=== PATIENT | female | born 1970 | race Caucasian/White ===

== ENCOUNTER → 2016-09-25 | Outpatient (CLI) | payer BC ==
[~2016-09-25] MED LIST: ASP81CT PO; BUPR150T6 PO; CYCL2DRO5 OD; ERT1OO OP; HYDR1CAP2 PO
--- NOTE | 2016-09-25 18:01 | Diagnostic Imaging Report ---
Left breast diagnostic mammogram. INDICATION: Left axilla pain. COMPARISON: 01/31/16 The current study was also evaluated with a Computer Aided Detection (CAD) system. FINDINGS: The left breast demonstrates heterogeneously dense parenchyma which would decrease mammographic sensitivity. There are scattered benign-appearing calcifications. The area of pain is marked and demonstrates no underlying abnormality. IMPRESSION: Negative study. Ultrasound evaluation of the area of pain is pending. ACR BI-RADS Category 0: Incomplete. (Needs additional imaging evaluation). Result letter will be mailed to the patient. Note: At least 10% of breast cancer is not imaged by mammography. Dictated by: Dictated on workstation # [id number]
--- NOTE | 2016-09-25 18:08 | Diagnostic Imaging Report ---
Left breast ultrasound. INDICATION: Left breast pain. FINDINGS: The area of pain is examined with no underlying abnormality seen. IMPRESSION: Negative study. Clinical follow-up is recommended. ACR BI-RADS Category 1: Negative. Dictated by: Dictated on workstation # [id number]
== END ==
LOC: RAD 08:15
PROVIDERS: ATTEND Family Medicine
DX: N64.4 Mastodynia (principal)
CPT/HCPCS: 76642

== ENCOUNTER → 2017-04-16 | Outpatient (CLI) | payer BC ==
--- NOTE | 2017-04-17 18:31 | Diagnostic Imaging Report ---
Bilateral screening mammogram 2D views with tomosynthesis The current study was also evaluated with a Computer Aided Detection (CAD) system. INDICATION: Screening. No current complaints stated on the questionnaire. COMPARISON: 09/25/2016. FINDINGS: The breasts are composed of heterogeneously dense parenchyma which may decrease mammographic sensitivity. No mass, architectural distortion, or suspicious cluster of calcifications seen. Allowing for technique and positional differences, no suspicious change is seen. IMPRESSION: No significant change. ACR BI-RADS Category 2: Benign findings. Result letter will be mailed to the patient. Note: At least 10% of breast cancer is not imaged by mammography. Dictated on workstation # [id number]
== END ==
LOC: RAD 13:12
PROVIDERS: ATTEND Nurse Practitioner
DX: Z12.31 Encounter for screening mammogram for malignant neoplasm of breast (principal)
CPT/HCPCS: 77067

== ENCOUNTER → 2018-12-04 | Outpatient (CLI) | payer BC ==
--- NOTE | 2018-12-04 12:35 | Diagnostic Imaging Report ---
PROCEDURE: US Thyroid. TECHNIQUE: Multiple real-time grayscale images were obtained of the thyroid in various projections. INDICATION: Thyroid nodules, followup. COMPARISON: Correlation is made with prior thyroid ultrasound from 11/09/2014. FINDINGS: Right lobe of thyroid measures 5.2 x 2.1 x 1.7 cm and left lobe measures 4.4 x 2.2 x 1.7 cm. Bilateral subcentimeter thyroid nodules are again noted. There are nodules in the right lobe in mid to lower aspect. The more superior nodule is approximately 5 mm in size compared with 7 mm on prior. More inferior nodule is approximately 8 mm x 7 mm compared with 9 mm x 9 mm on prior. Cystic nodule in upper pole of left lobe is approximately 7 mm compared with 8 mm on prior. Inferior nodule is approximately 7 x 9 mm compared with 6 mm x 6 mm on prior. IMPRESSION: Overall stable subcentimeter thyroid nodules when compared with study from four years earlier. No dominant thyroid mass is detected. Dictated by: Dictated on workstation # [id number]
--- NOTE | 2018-12-04 13:41 | Diagnostic Imaging Report ---
INDICATION: Routine screening. COMPARISON is made with prior mammogram 04/16/2017 and 01/31/2016. 2-D and 3-D bilateral screening mammography was performed with CAD. FINDINGS: Scattered fibroglandular densities are identified bilaterally. The parenchymal pattern is stable. No mass or malignant appearing microcalcifications are seen. Axillae are unremarkable. IMPRESSION: BI-RADS category 1. No mammographic features suspicious for malignancy are identified. ACR BI-RADS Category 1: Negative. Result letter will be mailed to the patient. Note: At least 10% of breast cancer is not imaged by mammography. Dictated by: Dictated on workstation # [id number]
== END ==
LOC: RAD 10:30
PROVIDERS: ATTEND Nurse Practitioner
DX: Z12.31 Encounter for screening mammogram for malignant neoplasm of breast (principal); Z01.419 Encounter for gynecological examination (general) (routine) without abnormal findings; E04.2 Nontoxic multinodular goiter
CPT/HCPCS: 76536; 77067

== ENCOUNTER → 2019-04-13 | Outpatient (CLI) | payer BC ==
[~2019-04-13] MED LIST changes: +ASPI-983 PO; +DOXY100C42 PO; +FAMO20TA3 PO; +MULT1TAB69 PO; +PROP10TA8 PO
== END ==
LOC: CARD 14:39
PROVIDERS: ATTEND Family Medicine
DX: I49.9 Cardiac arrhythmia, unspecified (principal)
CPT/HCPCS: 93005

== ENCOUNTER → 2019-04-13 | Outpatient (CLI) | payer BC ==
[~2019-04-13] MED LIST changes: +CATHETER FLUSH 10 ML SYR IV PRN; +HOLD METFORMIN - RECEIVED CONTRAST 20 ML VIAL IV SCH; +IOHEXOL 350 MG/ML 100 ML (OMNIPAQUE 350) VIAL IV ONE; +NS 100 ML (IVPB) BAG IV ONE
--- NOTE | 2019-04-13 17:55 | Diagnostic Imaging Report ---
PROCEDURE: CT angiography of the chest with contrast. TECHNIQUE: Multiple contiguous axial images were obtained through the chest after uneventful bolus administration of intravenous contrast. 3D reconstructed CTA MIP acquisitions were also performed. Auto Exposure Controls were utilized during the CT exam to meet ALARA standards for radiation dose reduction. DATE: April 13, 2019. COMPARISON: None. INDICATION: 48-year-old female, dyspnea. Elevated D-dimer. FINDINGS: There is no identified pulmonary nodule. There is no lung mass. There is no focal airspace consolidation. There is no pneumothorax. There is no pleural effusion. The central airways are patent. There is no identified central or proximal segmental pulmonary embolus. There is limited evaluation for distal pulmonary emboli given the timing of the contrast bolus. The main pulmonary artery is normal in caliber. The heart is not enlarged. There is no pericardial effusion. There is no identified abnormally enlarged mediastinal, hilar, or axillary lymph node which meets CT size criteria for adenopathy. There is fatty replacement of the pancreatic parenchyma. Additional evaluation of the imaged portions of the upper abdomen is unremarkable. There are degenerative changes of the spine. There is no identified acute bony abnormality. IMPRESSION: CT CHEST. 1. No identified proximal pulmonary embolus or other acute cardiopulmonary abnormality. Dictated by: Dictated on workstation # [id number]
== END ==
LOC: RAD 16:23
PROVIDERS: ATTEND Nurse Practitioner Family
DX: R06.00 Dyspnea, unspecified (principal); R79.89 Other specified abnormal findings of blood chemistry
CPT/HCPCS: 71275

== ENCOUNTER → 2019-12-08 | Outpatient (CLI) | payer BC ==
[~2019-12-08] MED LIST changes: -CATHETER FLUSH 10 ML SYR IV PRN; -HOLD METFORMIN - RECEIVED CONTRAST 20 ML VIAL IV SCH; -IOHEXOL 350 MG/ML 100 ML (OMNIPAQUE 350) VIAL IV ONE; +MULT-567 PO; -MULT1TAB69 PO; -NS 100 ML (IVPB) BAG IV ONE
== END ==
LOC: LABNPT 06:54
PROVIDERS: ATTEND Family Medicine
DX: M79.10 Myalgia, unspecified site (principal); R53.83 Other fatigue; R68.83 Chills (without fever); Z20.828 Contact with and (suspected) exposure to other viral communicable diseases
CPT/HCPCS: 87635

== ENCOUNTER → 2020-02-22 | Outpatient (CLI) | payer BC ==
[~2020-02-22] MED LIST changes: +ASPI-1238 PO; -ASPI-983 PO
== END ==
LOC: CARD 15:40
PROVIDERS: ATTEND Nurse Practitioner Family
DX: R00.2 Palpitations (principal); R53.83 Other fatigue; Z20.828 Contact with and (suspected) exposure to other viral communicable diseases
CPT/HCPCS: 93005

== ENCOUNTER → 2020-02-29 | Outpatient (CLI) | payer BC, OTHER | LOC: CARD 08:30 | PROVIDERS: ATTEND Internal Medicine Cardiovascular Disease | DX: D68.2 Hereditary deficiency of other clotting factors (principal); E78.5 Hyperlipidemia, unspecified; R07.89 Other chest pain; R06.02 Shortness of breath; R00.2 Palpitations; Z20.828 Contact with and (suspected) exposure to other viral communicable diseases | CPT/HCPCS: 93225; 93226 ==

== ENCOUNTER → 2020-03-11 | Outpatient (CLI) | payer BC, OTHER ==
--- NOTE | 2020-03-11 14:28 | Diagnostic Imaging Report ---
PROCEDURE: US Non-ob pelvis comp/trans. TECHNIQUE: Multiple realtime grayscale images were obtained of the pelvis in various projections endovaginally. Transabdominal imaging was also performed. INDICATION: Pelvic pain and abnormal uterine bleeding. The uterus is anteverted measuring 8.5 x 4.1 x 4.8 cm. Endometrium is 5 mm in thickness. No myometrial mass is detected. Right ovary measures 2.3 x 1.9 x 2.4 cm. There is a cyst in the right ovary measuring 2.2 x 1.9 x 2.2 cm. There appears to be vascularity present. The left ovary is not visualized. No free fluid is seen. IMPRESSION: 2.2 cm right ovarian cyst. The study is otherwise unremarkable. Dictated by: Dictated on workstation # [id number]
== END ==
LOC: RAD 12:41
PROVIDERS: ATTEND Family Medicine
DX: N83.201 Unspecified ovarian cyst, right side (principal)
CPT/HCPCS: 76830; 76856

== ENCOUNTER → 2020-03-15 | Outpatient (CLI) | payer BC, OTHER | LOC: CARD 09:00 | PROVIDERS: ATTEND Internal Medicine Cardiovascular Disease | DX: D68.2 Hereditary deficiency of other clotting factors (principal); R07.89 Other chest pain; R06.02 Shortness of breath; R00.2 Palpitations; E78.5 Hyperlipidemia, unspecified | CPT/HCPCS: 93306; 93351 ==

== ENCOUNTER → 2020-04-07 | Outpatient (CLI) | payer BC, OTHER ==
[~2020-04-07] MED LIST changes: +CATHETER FLUSH 10 ML SYR IV PRN; +HOLD METFORMIN - RECEIVED CONTRAST 20 ML VIAL IV SCH; +IOHEXOL 350 MG/ML 100 ML (OMNIPAQUE 350) VIAL IV ONE; +NS 100 ML (IVPB) BAG IV ONE
--- NOTE | 2020-04-07 14:09 | Diagnostic Imaging Report ---
PROCEDURE: CT angiography of the chest with contrast. TECHNIQUE: Multiple contiguous axial images were obtained through the chest after uneventful bolus administration of intravenous contrast. 3D reconstructed CTA MIP acquisitions were also performed. Auto Exposure Controls were utilized during the CT exam to meet ALARA standards for radiation dose reduction. INDICATION: Continued chest pain and shortness of air. COMPARISON: Comparison is made with prior CT angiogram of the chest performed on 04/13/2019. FINDINGS: Evaluation of the pulmonary arterial system is without evidence of thromboembolism. No filling defects are seen within central, lobar, or segmental branches. The thoracic aorta is normal in caliber. No dissection is seen. There is no pericardial or pleural fluid. No axillary lymphadenopathy is seen. No definite hilar or mediastinal lymphadenopathy is detected. There are some patchy groundglass peripheral infiltrates in the left upper lobe as well as the right upper lobe. Minimal patchy bibasilar pulmonary infiltrates are noted. The upper abdomen is unremarkable. IMPRESSION: 1. No evidence of pulmonary embolism or thoracic aortic dissection. 2. Patchy bilateral upper and lower lobe pulmonary infiltrates, consistent with pneumonia. Dictated by: Dictated on workstation # [id number]
== END ==
LOC: RAD 13:45
PROVIDERS: ATTEND Family Medicine
DX: U07.1 COVID-19 (principal)
CPT/HCPCS: 71275

== ENCOUNTER 2020-04-17 17:48 | Emergency (ER) | payer BC, OTHER ==
[~2020-04-17] VITALS: Ht 172 cm; Wt 108.0 kg
[~2020-04-17 17:48] MED LIST changes: -CATHETER FLUSH 10 ML SYR IV PRN; -HOLD METFORMIN - RECEIVED CONTRAST 20 ML VIAL IV SCH; -IOHEXOL 350 MG/ML 100 ML (OMNIPAQUE 350) VIAL IV ONE; -NS 100 ML (IVPB) BAG IV ONE
[2020-04-17] MEDS ORDERED: LACTATED RINGERS 1,000 ML IV ONE (18:00)
[2020-04-17] MEDS ORDERED: PANTOPRAZOLE 40 MG (PROTONIX) VIAL IV ONE (18:15)
--- NOTE | 2020-04-17 18:16 | ED Abdominal Pain ---
General Chief Complaint: Abdominal/GI Problems Stated Complaint: ABD SWELLING/LOWER BACK PAIN Nursing Triage Note: ARRIVED VIA AMB TO ROOM 05 WITH COMPLAINTS OF ABD PAIN AND DISTENTION STARTING ON SATURDAY. Sepsis Screen: No Definite Risk Source of Information: Patient History of Present Illness Date Seen by Provider: Apr 17, 2020 Time Seen by Provider: 17:57 Initial Comments PT ARRIVES VIA POV FROM HOME C/O EPIGASTRIC PAIN SINCE Saturday04/14/20 ( THANKSGIVING) PAIN WRAPS ALL THE WAY AROUND TO HER MID BACK ALSO C/O MUCH BLOATING AND UPPER ABDOMINAL DISTENTION WORSENED BY GREASY FOODS HAS HAD MILDER SYMPTOMS IN THE PAST, NEVER LASTED THIS LONG NO NAUSEA/VOMITING/DIARRHEA/CONSTIPATION HAD A LARGE BM YESTERDAY AND HELPED A LITTLE, BUT PAIN HAS NOT GONE AWAY NO FEVER NO URINARY SYMPTOMS PT HAS CONTINUED TO EAT AND DRINK NORMALLY--LAST INTAKE WAS AT 1530 TODAY- CHOCOLATE ICE CREAM HAS NOT TAKEN ANYTHING FOR PAIN SYMPTOMS NO DIFFERENT TODAY HAS NOT SOUGHT CARE UNTIL TODAY LMP 10/2014--EARLY MENOPAUSE PT HAD COVID-19 SYMPTOMS ON 03/24/20. TESTED + FOR COVID-19 ON 03/28/20 "OUT OF QUARANTINE" ON 04/04/20 DX WITH BILATERAL PNEUMONIA DUE TO COVID-19 ON 04/08 WAS PUT ON ZITHROMAX AND STEROIDS AT TIME OF DX, THEN ON AMOXIL AND DOXYCYCLINE AND STEROIDS WHEN DX WITH PNEUMONIA 04/08/20 FINISHED ANTIBIOTICS ON Saturday04/14/20 SHE STATES THOSE SYMPTOMS ARE COMPLETELY GONE. WAS STARTED ON TOPROL IN THE LAST MONTH FOR PALPITATIONS/TACHYCARDIA, AND ALSO STARTED ON METFORMIN FOR DIABETES IN THE LAST MONTH. BLOOD SUGARS HAD BEEN IN THE 300'S, NOW 100-140 PCP: DR. MARQUIS Allergies and Home Medications Allergies Coded Allergies: bupropion (Verified Allergy, Intermediate, Hives, 04/15/19) Home Medications Aspirin 81 Mg Tablet., 81 MG PO DAILY, (Reported) Dicyclomine HCl 20 Mg Tablet, 20 MG PO Q6H Prescribed by: NOVA ALVAREZ on 04/17/201953 Famotidine 20 Mg Tablet, 20 MG PO DAILY PRN for HEARTBURN, (Reported) Hyoscyamine Sulfate 0.125 Mg Tab.subl, 0.25 MG SL Q4H Prescribed by: NOVA ALVAREZ on 04/17/201953 Pantoprazole Sodium 40 Mg Tablet., 40 MG PO DAILY Prescribed by: NOVA ALVAREZ on 04/17/201953 Patient Home Medication List Home Medication List Reviewed: Yes Review of Systems Review of Systems Constitutional: no symptoms reported Respiratory: No Symptoms Reported Cardiovascular: No Symptoms Reported Gastrointestinal: See HPI, Abdomen Distended; Denies Constipated, Denies Diarrhea, Denies Nausea, Denies Poor Appetite, Denies Poor Fluid Intake, Denies Vomiting Genitourinary: No Symptoms Reported Musculoskeletal: see HPI, back pain Skin: no symptoms reported Psychiatric/Neurological: No Symptoms Reported Endocrine: No Symptoms Reported Hematologic/Lymphatic: No Symptoms Reported Past Kxtlixc-Kiidnr-Zsczzc Hx Past Med/Social Hx: Reviewed and Corrections made Patient Social History Alcohol Use: Occasionally Uses Recreational Drug Use: No Smoking Status: Former Smoker (SMOKED 1 PPD, QUIT 2007) Type Used: Cigarettes Former Smoker, Quit: Apr 15, 2008 Recent Foreign Travel: No Contact w/Someone Who Travel: No Recent Infectious Disease Expo: Yes (COVID-19 + 03/28/20) Recent Hopitalizations: No Immunizations Up To Date PED Vaccines UTD: No Date of Influenza Vaccine: Apr 03, 2019 Seasonal Allergies Seasonal Allergies: Yes Past Medical History Surgeries: Yes (JUAN 1991) Tonsillectomy Respiratory: Yes (COVID-19 DX 03/28/20;PNEUMONIA 04/08/20) Pneumonia Currently Using CPAP: No Currently Using BIPAP: No Cardiac: Yes (TACHYCARDIA) Irregular Heartbeat, Palpitations Neurological: No Reproductive Disorders: Yes (EARLY MENOPAUSE--LMP 10/2014; LEEP 1991 FOR CERVICAL DYSPLASIA) Female Reproductive Disorders: Menstrual Problems Sexually Transmitted Disease: No HIV/AIDS: No Genitourinary: No Gastrointestinal: Yes (POSSIBLE ULCER) Gastroesophageal Reflux Musculoskeletal: No Endocrine: Yes (CYSTS ON THYROID; OBESITY) Diabetes, Non-Insulin dep HEENT: Yes (S/P TONSILLECTOMY) Tonsilitis Loss of Vision: Denies Hearing Impairment: Denies Cancer: No Psychosocial: No Integumentary: No 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 oz. 92.269593od; 36.00 BMI Method:Stated General Appearance: WD/WN, no apparent distress, obese, other (DOES NOT APPEAR TO BE IN ANY DISCOMFORT OR DISTRESS. TALKING/TEXTING ON PHONE) HEENT: No scleral icterus (R), No scleral icterus (L) Neck: normal inspection Respiratory: normal breath sounds, no respiratory distress, no accessory muscle use Cardiovascular: regular rate, rhythm, no murmur Gastrointestinal: normal bowel sounds, soft, no organomegaly, no pulsatile mass, distended (UPPER ABDOMEN ); No guarding, No rebound; tenderness (DIFFUSE UPPER ABDOMINAL TENDERNESS. 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, no motor/sensory deficits, alert, normal mood/affect, oriented x 3 Skin: normal color, warm/dry; No rash Progress/Results/Core Measures Results/Orders Lab Results Laboratory Tests Test 04/17/20 18:18 04/17/20 18:40 Range/Units White Blood Count 7.1 4.3-11.0 10^3/uL Red Blood Count 4.36 3.80-5.11 10^6/uL Hemoglobin 13.7 11.5-16.0 g/dL Hematocrit 43 35-52 % Mean Corpuscular Volume 99 80-99 fL Mean Corpuscular Hemoglobin 31 25-34 pg Mean Corpuscular Hemoglobin Concent 32 32-36 g/dL Red Cell Distribution Width 12.8 10.0-14.5 % Platelet Count 202 130-400 10^3/uL Mean Platelet Volume 9.4 9.0-12.2 fL Immature Granulocyte % (Auto) 1 % Neutrophils (%) (Auto) 55 42-75 % Lymphocytes (%) (Auto) 29 12-44 % Monocytes (%) (Auto) 13 H 0-12 % Eosinophils (%) (Auto) 3 0-10 % Basophils (%) (Auto) 0 0-10 % Neutrophils # (Auto) 3.9 1.8-7.8 10^3/uL Lymphocytes # (Auto) 2.1 1.0-4.0 10^3/uL Monocytes # (Auto) 0.9 0.0-1.0 10^3/uL Eosinophils # (Auto) 0.2 0.0-0.3 10^3/uL Basophils # (Auto) 0.0 0.0-0.1 10^3/uL Immature Granulocyte # (Auto) 0.0 0.0-0.1 10^3/uL Sodium Level 140 135-145 MMOL/L Potassium Level 4.2 3.6-5.0 MMOL/L Chloride Level 105 98-107 MMOL/L Carbon Dioxide Level 22 21-32 MMOL/L Anion Gap 13 5-14 MMOL/L Blood Urea Nitrogen 18 7-18 MG/DL Creatinine 0.96 0.60-1.30 MG/DL Estimat Glomerular Filtration Rate > 60 BUN/Creatinine Ratio 19 Glucose Level 153 H 70-105 MG/DL Calcium Level 8.4 L 8.5-10.1 MG/DL Corrected Calcium 8.6 8.5-10.1 MG/DL Magnesium Level 2.2 1.6-2.4 MG/DL Total Bilirubin 0.3 0.1-1.0 MG/DL Aspartate Amino Transf (AST/SGOT) 37 H 5-34 U/L Alanine Aminotransferase (ALT/SGPT) 65 H 0-55 U/L Alkaline Phosphatase 82 40-136 U/L Total Protein 7.1 6.4-8.2 GM/DL Albumin 3.7 3.2-4.5 GM/DL Amylase Level 51 25-125 U/L Lipase 37 8-78 U/L Serum Test, Qualitative NEGATIVE NEGATIVE Urine Color YELLOW Urine Clarity CLEAR Urine pH 7.5 5-9 Urine Specific [place] 1.015 L 1.016-1.022 Urine Protein NEGATIVE NEGATIVE Urine Glucose (UA) NEGATIVE NEGATIVE Urine Ketones NEGATIVE NEGATIVE Urine Nitrite NEGATIVE NEGATIVE Urine Bilirubin NEGATIVE NEGATIVE Urine Urobilinogen 0.2 < = 1.0 MG/DL Urine Leukocyte Esterase NEGATIVE NEGATIVE Urine RBC (Auto) NEGATIVE NEGATIVE Urine RBC NONE /HPF Urine WBC NONE /HPF Urine Squamous Epithelial Cells 0-2 /HPF Urine Renal Epithelial Cells 0-2 /HPF Urine Crystals NONE /LPF Urine Bacteria NEGATIVE /HPF Urine Casts NONE /LPF Urine Mucus NEGATIVE /LPF Urine Culture Indicated NO My Orders Orders - ANTONIO,NOVA K DO Ed Iv/Invasive Line Start (04/17/20 18:00) Amylase (04/17/20 18:00) Cbc With Automated Diff (04/17/20 18:00) Comprehensive Metabolic Panel (04/17/20 18:00) Hcg,Qualitative Serum (04/17/20 18:00) Lipase (04/17/20 18:00) Magnesium (04/17/20 18:00) Ua Culture If Indicated (04/17/20 18:00) Ed Iv/Invasive Line Start (04/17/20 18:00) Lactated Ringers (Lr 1000 Ml Iv Solution (04/17/20 18:00) Pantoprazole Injection (Protonix Injecti (04/17/20 18:15) Ct Abdomen/Pelvis W (04/17/20 19:05) Acute Abd Series (04/17/20 19:05) Iohexol Injection (Omnipaque 350 Mg/Ml 1 (04/17/20 19:30) Received Contrast (Hold Metformin- Contr (04/17/20 19:30) Ns (Ivpb) (Sodium Chloride 0.9% Ivpb Bag (04/17/20 19:30) Rx-Dicyclomine Capsule (Rx-Bentyl Capsul (04/17/20 19:53) Rx-Hyoscyamine Tab (Rx-Levsin Sl) (04/17/20 19:53) Medications Given in ED Current Medications Medications Dose Ordered Sig/Veena Route Start Time Stop Time Status Last Admin Dose Admin Iohexol 100 ml ONCE ONCE IV 04/17/20 19:30 04/17/20 19:31 UNV 04/17/20 19:21 100 ML Lactated Ringer's 1,000 ml @ 0 mls/hr Q0M ONCE IV 04/17/20 18:00 04/17/20 18:02 DC 04/17/20 18:24 1,000 MLS/HR Pantoprazole 40 mg ONCE ONCE IV 04/17/20 18:15 04/17/20 18:16 DC 04/17/20 18:24 40 MG Sodium Chloride 100 ml ONCE ONCE IV 04/17/20 19:30 04/17/20 19:31 UNV 04/17/20 19:21 80 ML Vital Signs/I&O 04/17/20 17:50 Temp 36.7 Pulse 106 Resp 16 B/P (MAP) 141/96 (111) Pulse Ox 97 O2 Delivery Room Air Blood Pressure Mean: 111 Progress Progress Note : Progress Note UNEVENTFUL ER STAY Diagnostic Imaging Comments CT ABDOMEN/PELVIS--PER RADIOLOGIST REPORT AT 1939 IMPRESSION: 1. Mild inflammation surrounding the duodenum. Differential consideration would include an infectious or inflammatory duodenitis or pancreatitis. Recommend correlation with laboratory values. 2. Patchy consolidation within the lung bases concerning for a multifocal pneumonia. ABDOMEN XRAYS--PER RADIOLOGIST REPORT AT 1943 FINDINGS: Heart size and pulmonary vasculature are normal. The lungs are clear without consolidation, pleural effusion or pneumothorax. The osseous structures are intact. There is moderate amount of gas and stool throughout the colon. Nonobstructive bowel gas pattern. No radiopaque foreign body. The osseous structures are intact. There is appearance of contrast within the urinary bladder likely secondary to recent CT. IMPRESSION: No acute abnormality in the chest or abdomen. Reviewed: Reviewed by Me Departure Impression Primary Impression: Epigastric abdominal pain Additional Impressions: Duodenitis RECENT COVID-19 PNEUMONIA Disposition: HOME, SELF-CARE Condition: Stable Departure-Patient Inst. Referrals: MAHOGANY MARQUIS DO (PCP/Family) Primary Care Physician Patient Instructions: Coronavirus Disease 2019 (COVID-19) (DC), Gastritis (DC), Severe Abdominal Pain, Adult (DC) Add. Discharge Instructions: CONTINUE YOUR CURRENT MEDICATIONS PRESCRIBED CLEAR LIQUIDS--WATER, BROTH, JELLO, GATORADE BRATS DIET--BANANAS, RICE, APPLESAUCE, TOAST, SALTINES FOLLOW UP WITH DR. MARQUIS THIS WEEK FOR FURTHER CARE--CALL IN AM TO SCHEDULE AN APPOINTMENT All discharge instructions reviewed with patient and/or family. Voiced understanding. Scripts Dicyclomine HCl (Dicyclomine HCl) 20 Mg Tablet 20 MG PO Q6H for Abdominal Pain, #20 TAB Prov: ANTONIONOVA K DO 04/17/20 Hyoscyamine Sulfate (Levsin-Sl) 0.125 Mg Tab.subl 0.25 MG SL Q4H, #10 TAB Prov: ANTONIONOVA K DO 04/17/20 Pantoprazole Sodium (Protonix) 40 Mg Tablet.dr 40 MG PO DAILY, #15 TAB Prov: NOVA ALVAREZ K DO 04/17/20 HAMIDA ALVAREZA K DO Apr 17, 2020 18:16
[2020-04-17 18:27] LABS: BASOPHILS % (AUTO) 0 % (0-10); EOSINOPHILS # (AUTO) 0.2 10^3/uL (0.0-0.3); EOSINOPHILS % (AUTO) 3 % (0-10); HEMATOCRIT 43 % (35-52); HEMOGLOBIN 13.7 g/dL (11.5-16.0); LYMPHOCYTES # (AUTO) 2.1 10^3/uL (1.0-4.0); LYMPHOCYTES % (AUTO) 29 % (12-44); MEAN CORPUSCULAR HEMOGLOBIN 31 pg (25-34); MEAN CORPUSCULAR HGB CONC 32 g/dL (32-36); MEAN CORPUSCULAR VOLUME 99 fL (80-99); MEAN PLATELET VOLUME 9.4 fL (9.0-12.2); MONOCYTES # (AUTO) 0.9 10^3/uL (0.0-1.0); MONOCYTES % (AUTO) 13 % (0-12); NEUTROPHILS # (AUTO) 3.9 10^3/uL (1.8-7.8); NEUTROPHILS % (AUTO) 55 % (42-75); PLATELET COUNT 202 10^3/uL (130-400); WHITE BLOOD COUNT 7.1 10^3/uL (4.3-11.0)
[2020-04-17 18:52] LABS: BILIRUBIN,URINE NEGATIVE (NEGATIVE); CLARITY,URINE CLEAR; COLOR,URINE YELLOW; GLUCOSE, URINE (UA) NEGATIVE (NEGATIVE); KETONES,URINE NEGATIVE (NEGATIVE); LEUKOCYTE ESTERASE ,URINE NEGATIVE (NEGATIVE); NITRITE,URINE NEGATIVE (NEGATIVE); PH,URINE 7.5 (5-9); PROTEIN,URINE NEGATIVE (NEGATIVE)
[2020-04-17 18:58] LABS: ALBUMIN 3.7 GM/DL (3.2-4.5); CHLORIDE 105 MMOL/L (98-107); POTASSIUM 4.2 MMOL/L (3.6-5.0); SODIUM 140 MMOL/L (135-145)
[2020-04-17 18:58] LABS: BACTERIA,URINE NEGATIVE /HPF; RENAL EPITHELIAL CELLS,URINE 0-2 /HPF; SQUAMOUS EPITHELIAL CELL,UR 0-2 /HPF
[2020-04-17 19:00] LABS: CALCIUM 8.4 MG/DL (8.5-10.1)
[2020-04-17 19:01] LABS: AMYLASE 51 U/L (25-125); GLUCOSE 153 MG/DL (70-105); TOTAL PROTEIN 7.1 GM/DL (6.4-8.2)
[2020-04-17 19:02] LABS: CARBON DIOXIDE 22 MMOL/L (21-32)
[2020-04-17 19:03] LABS: BILIRUBIN,TOTAL 0.3 MG/DL (0.1-1.0)
[2020-04-17 19:04] LABS: ALKALINE PHOSPHATASE 82 U/L (40-136)
[2020-04-17 19:05] LABS: CREATININE SERUM 0.96 MG/DL (0.60-1.30); GFR ESTIMATED > 60
[2020-04-17 19:06] LABS: BUN/CREATININE RATIO 19
[2020-04-17 19:07] LABS: ALANINE AMINOTRANSFERASE 65 U/L (0-55)
[2020-04-17 19:08] LABS: MAGNESIUM 2.2 MG/DL (1.6-2.4)
[2020-04-17 19:09] LABS: LIPASE 37 U/L (8-78)
[2020-04-17] MEDS ORDERED: NS 100 ML (IVPB) BAG IV ONE (19:30)
[2020-04-17] MEDS ORDERED: HOLD METFORMIN - RECEIVED CONTRAST 20 ML VIAL IV SCH (19:30)
[2020-04-17] MEDS ORDERED: IOHEXOL 350 MG/ML 100 ML (OMNIPAQUE 350) VIAL IV ONE (19:30)
--- NOTE | 2020-04-17 19:35 | Diagnostic Imaging Report ---
EXAMINATION: CT abdomen and pelvis with intravenous contrast. TECHNIQUE: Multiple contiguous axial images were obtained through the abdomen and pelvis after the uneventful administration of intravenous contrast. All CT scans use one or more of the following dose optimizing techniques: automated exposure control, MA and/or KvP adjustment based on patient size and exam type or iterative reconstruction. HISTORY: Epigastric pain. COMPARISON: None available. FINDINGS: Lung bases: Patchy consolidation within the lung bases. Solid organs: The liver is normal without focal lesion. The gallbladder is normal. There is no biliary ductal dilation. Mild atrophy of the pancreas without ductal dilatation. Spleen is normal. Adrenal glands are normal. The kidneys are normal without hydronephrosis. Bowel: There is mild inflammatory stranding surrounding the duodenum. No bowel obstruction. The colon and appendix are normal. Peritoneum: There is no intraperitoneal free fluid or free air. No suspicious lymphadenopathy. Vasculature: Normal without aneurysm. Musculoskeletal: Degenerative changes of the spine without suspicious osseous lesion or compression fracture. Pelvis: The uterus and adnexa are normal. The urinary bladder is normal. IMPRESSION: 1. Mild inflammation surrounding the duodenum. Differential consideration would include an infectious or inflammatory duodenitis or pancreatitis. Recommend correlation with laboratory values. 2. Patchy consolidation within the lung bases concerning for a multifocal pneumonia. Dictated by: Dictated on workstation # [id number]
--- NOTE | 2020-04-17 19:41 | Diagnostic Imaging Report ---
EXAMINATION: Abdominal series and chest radiograph. HISTORY: Abd. pain. COMPARISON: Chest radiograph 04/15/2019, CT abdomen/pelvis 04/17/2020. FINDINGS: Heart size and pulmonary vasculature are normal. The lungs are clear without consolidation, pleural effusion or pneumothorax. The osseous structures are intact. There is moderate amount of gas and stool throughout the colon. Nonobstructive bowel gas pattern. No radiopaque foreign body. The osseous structures are intact. There is appearance of contrast within the urinary bladder likely secondary to recent CT. IMPRESSION: No acute abnormality in the chest or abdomen. Dictated by: Dictated on workstation # [id number]
[2020-04-17] MEDS ORDERED: HYOS0.1283 SL ×2 (19:42→19:54)
[2020-04-17] MEDS ORDERED: PANT40TA2 PO ×2 (19:42→19:54)
[2020-04-17] MEDS ORDERED: DICY20TA10 PO ×2 (19:42→19:54)
[2020-04-17] MEDS ORDERED: RX-DICYCLOMINE 10 MG (BENTYL) CAP PPK#4 PO STA (19:53)
[2020-04-17] MEDS ORDERED: RX-HYOSCYAMINE 0.125 MG SL (LEVSIN) PPK#6 SL STA (19:53)
[2020-04-17 20:08] VITALS: BP 136/92
== END 2020-04-17 20:08 | disposition home or self-care (01) ==
LOC: EDUNIT# 17:48 → ER 17:50
DX: R10.13 Epigastric pain (principal); K29.80 Duodenitis without bleeding; U07.1 COVID-19; J12.89 Other viral pneumonia; K21.9 Gastro-esophageal reflux disease without esophagitis; E66.9 Obesity, unspecified; Z88.8 Allergy status to other drugs, medicaments and biological substances; Z87.891 Personal history of nicotine dependence; Z80.1 Family history of malignant neoplasm of trachea, bronchus and lung; Z68.36 Body mass index [BMI] 36.0-36.9, adult; Z79.82 Long term (current) use of aspirin
CPT/HCPCS: 36415; 74022; 74177; 80053; 81000; 82150; 83690; 83735; 84703; 85025

== ENCOUNTER → 2020-05-31 | Outpatient (CLI) | payer BC ==
[~2020-05-31] MED LIST changes: +DICY20TA10 PO; +HYOS0.1283 SL; +PANT40TA2 PO
--- NOTE | 2020-05-31 09:52 | Diagnostic Imaging Report ---
Digital mammogram INDICATION: Bilateral screening This study was compared to the prior exams of 12/04/2018, 04/08/2017, 09/25/2016 and 01/31/2016. At this time there are no current complaints. The current study was also evaluated with a Computer Aided Detection (CAD) system. FINDINGS: The fibroglandular tissue in both breasts is heterogeneously dense. This does limit the sensitivity of this exam. Overall, there does not appear to have been any significant change when compared to the prior study. No primary or secondary sign of malignancy is noted. IMPRESSION: There is no radiographic evidence for malignancy. ACR category 1 ACR BI-RADS Category 1: Negative. Result letter will be mailed to the patient. Note: At least 10% of breast cancer is not imaged by mammography. Dictated by: Dictated on workstation # [id number]
== END ==
LOC: RAD 07:45
PROVIDERS: ATTEND Obstetrics & Gynecology
DX: Z12.31 Encounter for screening mammogram for malignant neoplasm of breast (principal)
CPT/HCPCS: 77063; 77067

== ENCOUNTER 2020-08-26 14:02 | Outpatient (RCR) | payer BC ==
[~2020-08-26 14:02] MED LIST changes: +DOXY-311 PO; -DOXY100C42 PO
== END 2020-11-24 ==
LOC: CARD 14:02
PROVIDERS: ATTEND Family Medicine
DX: I49.9 Cardiac arrhythmia, unspecified (principal)

== ENCOUNTER → 2020-09-21 | Outpatient (CLI) | payer BC ==
[~2020-09-21] MED LIST changes: -DOXY-311 PO; +DOXY100C42 PO
== END ==
LOC: CARD 08:05
PROVIDERS: ATTEND Internal Medicine Cardiovascular Disease
DX: R00.2 Palpitations (principal)
CPT/HCPCS: 93306

== ENCOUNTER → 2020-09-30 | Outpatient (CLI) | payer BC | LOC: LABNPT 08:51 | DX: Z13.89 Encounter for screening for other disorder (principal); Z20.822 Contact with and (suspected) exposure to COVID-19 | CPT/HCPCS: 87635 ==

== ENCOUNTER 2020-10-03 20:51 | Outpatient (CLI) | payer BC | END 2020-10-04 06:18 | disposition home or self-care (01) | LOC: SLEEP 20:51 | PROVIDERS: ATTEND Family Medicine | DX: Z00.00 Encounter for general adult medical examination without abnormal findings (principal); G47.33 Obstructive sleep apnea (adult) (pediatric); G47.10 Hypersomnia, unspecified; I10 Essential (primary) hypertension; I49.9 Cardiac arrhythmia, unspecified; K21.9 Gastro-esophageal reflux disease without esophagitis | CPT/HCPCS: 95811 ==

== ENCOUNTER → 2022-03-30 | Outpatient (CLI) | payer BC ==
[~2022-03-30] MED LIST changes: +DICY20TA PO; -DICY20TA10 PO; +DOXY-311 PO; -DOXY100C42 PO
--- NOTE | 2022-03-30 12:21 | Diagnostic Imaging Report ---
Indication: Routine screening. Comparison is made with prior mammogram from 05/31/2020 and 12/04/2018. 2-D and 3-D bilateral screening mammography was performed with CAD. CAD is utilized. The current study was also evaluated with a Computer Aided Detection (CAD) system. Scattered fibroglandular densities are identified bilaterally. The parenchymal pattern is stable. No mass or malignant-appearing microcalcifications are seen. Axillae are unremarkable. IMPRESSION: BI-RADS Category 1 No mammographic features suspicious for malignancy are identified. ACR BI-RADS Category 1: Negative. Result letter will be mailed to the patient. Note: At least 10% of breast cancer is not imaged by mammography. Dictated by: Dictated on workstation # [id number]
== END ==
LOC: RAD 09:02
PROVIDERS: ATTEND Family Medicine
DX: Z12.31 Encounter for screening mammogram for malignant neoplasm of breast (principal)
CPT/HCPCS: 77063; 77067

== ENCOUNTER → 2023-04-01 | Outpatient (CLI) | payer BC ==
[~2023-04-01] MED LIST changes: -DOXY-311 PO; +DOXY-444 PO; +FAMO-356 PO; -FAMO20TA3 PO
--- NOTE | 2023-04-01 16:42 | Diagnostic Imaging Report ---
EXAMINATION: 3D bilateral screening mammogram with CAD. INDICATION: Screening. COMPARISON: This study was compared to the prior exams of 03/30/2022, 05/31/2020, and 12/04/2018. FINDINGS: The breasts are heterogenously dense which may obscure small masses. When compared to the previous study, there does not appear to have been any significant change. There is no primary or secondary sign of malignancy noted. IMPRESSION: There is no evidence for malignancy. ACR BI-RADS Category 1: Negative. Result letter will be mailed to the patient. Note: At least 10% of breast cancer is not imaged by mammography. Dictated by: Dictated on workstation # [id number]
== END ==
LOC: RAD 11:08
PROVIDERS: ATTEND Family Medicine
DX: Z12.31 Encounter for screening mammogram for malignant neoplasm of breast (principal)
CPT/HCPCS: 77063; 77067